=== PATIENT | male | born 1980 | race Caucasian/White ===

== ENCOUNTER 2018-02-23 16:31 | Emergency (ER) | payer SELFPAY ==
[2018-02-23] MEDS ORDERED: NITROGLYCERIN 0.4 MG TAB SL ONE (16:35)
[2018-02-23] MEDS ORDERED: ASPIRIN 81 MG CHEWABLE CTB ONE (16:35)
[2018-02-23] MEDS ORDERED: SODIUM CHLORIDE 0.9% FLUSH 10 ML SOL IV PRN (16:58)
[2018-02-23] MEDS ORDERED: NITROGLYCERIN 0.4 MG TAB SL PRN (16:58)
[2018-02-23] MEDS ORDERED: ASPIRIN 81 MG CHEWABLE CTB PO STA (16:58)
[2018-02-23 17:01] VITALS: TEMP 98.5; O2SAT 97
[2018-02-23 17:05] LABS: HEMATOCRIT 40 % (39-53); HEMOGLOBIN 12.9 gm/dl (13.5-17.7); MEAN CORPUSCULAR HEMOGLOBIN 24.2 pg (27.0-32.0); MEAN CORPUSCULAR HGB CONC 32.1 gm/dl (32.0-36.0)
[2018-02-23] MEDS ORDERED: MORPHINE SULFATE 10 MG/ML SOL IV ONE (17:09)
[2018-02-23 17:11] LABS: MEAN CORPUSCULAR VOLUME 76 fL (80-100)
[2018-02-23] MEDS ORDERED: MORPHINE SULFATE 10 MG/ML SOL ONE (17:13)
[2018-02-23 17:15] LABS: INR 0.93 (0.86-1.12)
[2018-02-23 17:18] LABS: ALBUMIN 3.7 gm/dl (3.4-5.0); ALKALINE PHOSPHATASE 93 IU/L (46-116); ALT 22 IU/L (14-63); AMYLASE 49 IU/L (25-115); AST 22 IU/L (15-37); BILIRUBIN,TOTAL 0.3 mg/dl (0.2-1.0); BLOOD UREA NITROGEN 14 mg/dl (7-18); CARBON DIOXIDE 21.8 mEq/L (21-32); CHLORIDE 102 mMol/L (98-107); CREATINE KINASE 90 U/L (39-308); CREATININE 1.32 mg/dl (0.80-1.30); GLOM FILT RATE 61 mL/min (>60); GLUCOSE 148 mg/dl (74-106); POTASSIUM 4.3 mMol/L (3.5-5.1); SODIUM 136 mMol/L (136-145); TOTAL PROTEIN 8.3 gm/dl (6.4-8.2); TROP I < 0.017 ng/ml (0.000-0.056)
[2018-02-23 17:26] LABS: ANISOCYTOSIS SLIGHT AMT; BAND NEUTROPHILS % (MANUAL) 0 %; BASOPHILS % (MANUAL) 0 % (0-3); EOSINOPHILS % (MANUAL) 0 % (0-9); LYMPHOCYTES % (MANUAL) 42 % (10-50); MONOCYTES % (MANUAL) 6 % (0-12); NEUTROPHILS % (MANUAL) 52 % (37-80)
[2018-02-23 18:00] LABS: APPEARANCE,URINE Clear; BILIRUBIN,URINE NEGATIVE (NEGATIVE); COLOR,URINE Yellow; GLUCOSE, URINE (UA) NEGATIVE (NEGATIVE); KETONES,URINE TRACE (NEGATIVE); LEUKOCYTE ESTERASE ,URINE NEGATIVE (NEGATIVE); NITRATE,URINE NEGATIVE (NEGATIVE); OCCULT BLOOD,URINE NEGATIVE (NEG-TRACE); PH,URINE 6.5; UROBILINOGEN,URINE 0.2 (0.2-1.0 EU)
[2018-02-23 18:11] LABS: BACTERIA 1+ (< 1+); CRYSTALS NEGATIVE (0-3 AVE/HPF); EPITHELIAL CELLS 0-3 (SQUAMOUS); RBC,URINE NEGATIVE (0-3AV/HPF); WBC,URINE 0-1 (0-5AV/HPF)
[2018-02-23] MEDS ORDERED: SODIUM CHLORIDE 0.9% 1000ML 1,000 ML IV ONE (18:16)
[2018-02-23 18:58] VITALS: BP 114/81; PULSE 92; RESP 22
== END 2018-02-23 18:55 | disposition home or self-care (01) | DRG 392 ==
LOC: ED 16:31
DX: R10.9 Unspecified abdominal pain (principal); R11.0 Nausea; Z87.898 Personal history of other specified conditions
CPT/HCPCS: 71045; 74176; 80053; 81001; 82150; 82550; 84484; 85007; 85027; 85610; 85730; 93005; 96365; 96374; 99285; 99291; J2270; A9270-GY

== ENCOUNTER 2018-07-01 01:36 | Emergency (ER) | payer MEDICAID, OTHER ==
[2018-07-01 02:26] VITALS: BP 94/71; PULSE 82; RESP 18; TEMP 97.1; O2SAT 98
== END 2018-07-01 02:42 | disposition home or self-care (01) | DRG 605 ==
LOC: ED 01:36
DX: S51.811A Laceration without foreign body of right forearm, initial encounter (principal)
CPT/HCPCS: 12001; 99282; G0168